=== PATIENT | male | born 1955 | race Caucasian/White ===

== ENCOUNTER → 2025-05-24 14:00 | Outpatient (CLI) | payer MEDICARE, OTHER, SELFPAY ==
--- NOTE | 2025-05-24 14:03 | DI.MRI.S_ITS ---
PROCEDURE: MR PELVIC PROSTATE PROTOCOL INDICATIONS: 69 y/o M w/ elevated PSA, please eval TECHNIQUE: Coronal HASTE, axial T1 FSE with fat saturation, 3-plane nonbreath-hold T2 FSE. After the administration of contrast, dynamic axial, delayed axial and coronal VIBE or 2-D FLASH with fat saturation through the pelvis. Diffusion weighted imaging and ADC was performed. COMPARISON: None. FINDINGS: Image quality: Diffusion images limited by rectal gas artifact Prostate: Gland size is 5.1 x 2.8 x 4.7 cm; ellipsoid gland volume is 34.9 mL. PSA was not provided to calculi PSA density. heterogenous nodules are present, either well encapsulated or mostly encapsulated, compatible with PI-RADS 1 or 2 likely BPH nodules. Mildly T2 hypointense heterogenous striated appearance of the peripheral zone is commonly seen with current or prior prostatitis, PI-RADS 2. These findings can obscure small cancers. 0.7 cm lesion is seen in the left central gland (5/14, 24/7). T2 score 3. DWI score 3. DCE negative. PI-RADS 3. Genitourinary system: Under distended urinary bladder. Bowel and peritoneum: Large colonic fecal loading and rectal gas burden. There is gas artifact in the adjacent pelvic structures, particularly on diffusion images. Nodes and vessels: No aneurysmal artery identified. No enlarged lymph nodes by size criteria. Soft tissues: No significant pelvic wall abnormality Bones: No suspicious osseous enhancement IMPRESSION: PI-RADS 3 lesion in the left central gland. (5/14, 24/7) Sequelae of BPH and probable prostatitis seen elsewhere. No high suspicion PI-RADS 4 or 5 lesion for clinically significant prostate adenocarcinoma. Study is limited, particularly on the diffusion images from significant rectal gas artifact. No pelvic lymphadenopathy by size criteria. No aggressive osseous abnormality. Dictated by: Niels Erickson M.D. on 05/26/2025 at 8:02 Approved by: Niels Erickson M.D. on 05/26/2025 at 8:09
== END ==
LOC: MRI 14:02
PROVIDERS: PCP Nurse Practitioner; Referring Provider Urology; Visit Provider Urology
DX: R97.20 Elevated prostate specific antigen [PSA] (principal)
CPT/HCPCS: 72197; A9579

== ENCOUNTER → 2025-07-15 08:35 | Outpatient (CLI) | payer MEDICARE, OTHER, SELFPAY ==
--- NOTE | 2025-07-15 08:36 | DI.MRI.S_ITS ---
PROCEDURE: MR HEAD/BRAIN WO/W CON INDICATIONS: Aphasia TECHNIQUE: Noncontrast axial T1 spin echo, axial T2 fast spin echo, sagittal and axial FLAIR, coronal T2 fast spin echo, axial gradient echo, axial diffusion and ADC through the brain. After the administration of contrast, axial and coronal and sagittal 3D VIBE or T1 spin echo with fat saturation through the brain. COMPARISON: [facility], MR, MR BRAIN WITHOUT CONTRAST, 07/26/2022, 22:12. FINDINGS: Image quality: Excellent. CSF Spaces: Basal cisterns are patent. No extra-axial fluid collections. Ventricles are normal in size and shape. Brain: No midline shift. No intracranial bleeds or masses. Mild, diffuse cerebral volume loss. Minimal periventricular and subcortical white matter chronic microvascular ischemic changes. No abnormal intracranial enhancement. The brainstem appears normal. Diffusion-weighted images demonstrate no acute infarct. No chronic ischemic insults. Normal intravascular flow voids are present. Skull and face: Calvarial marrow is normal in signal. Orbits appear normal. Sinuses: Sinuses and mastoids appear clear. IMPRESSION: No acute intracranial disease process. No acute or chronic infarcts. No abnormal intracranial mass or suspicious postcontrast enhancement. Stable mild, diffuse cerebral volume loss and minimal white matter chronic microvascular ischemic changes. Dictated by: Enid Kwon MD, PhD on 07/15/2025 at 12:30 Approved by: Enid Kwon MD, PhD on 07/15/2025 at 12:35
[2025-07-15 15:42] VITALS: BP 115/56; PULSE 62; RESP 12; O2SAT 96
[2025-07-15 15:47] VITALS: BP 107/52; PULSE 60; RESP 12; O2SAT 96
[2025-07-15 15:52] VITALS: BP 108/71; PULSE 60; RESP 12; O2SAT 98
[2025-07-15 15:54] VITALS: BP 108/56; PULSE 61; RESP 13; O2SAT 98
== END ==
LOC: MRI 08:36
PROVIDERS: PCP Nurse Practitioner; Referring Provider Psychiatry & Neurology Neurology; Visit Provider Psychiatry & Neurology Neurology
DX: R47.01 Aphasia (principal)
CPT/HCPCS: 70553; A9579